=== PATIENT | male | born 1955 ===

== ENCOUNTER 2024-05-01 05:30 | Day surgery (SDC) | payer OTHER ==
[2024-04-18 08:03] LABS: PH,URINE 6.5 (5.0-8.0); URINE APPEARANCE Clear; URINE BILIRRUBIN Negative (NEGATIVE); URINE BLOOD Negative; URINE COLOR Yellow; URINE GLUCOSE Negative (NEGATIVE); URINE LEUKOCYTE Trace; URINE NITRATE Negative; URINE PROTEIN Negative (NEGATIVE)
[2024-04-18 08:04] LABS: URINE BACTERIA 8.8 uL (0.0-1933); URINE RBC 3.3 uL (0.0-20.8); URINE WBC 9.5 uL (0.0-23.2)
[2024-04-18 08:06] LABS: HEMATOCRIT 40.9 % (39.0-48.0); HEMOGLOBIN 14.1 g/dL (13-16.00); MEAN CELL VOLUME 97.5 fL (80.0-100.00); MEAN CORPUSCULAR HEMOGLOBIN 33.5 pg (27.00-32.0); MEAN CORPUSCULAR HGB CONC 34.4 g/dl (32.0-36.0); PLATELET COUNT 184 K/uL (150-450); RED CELL DISTRIBUTION WIDTH 14.5 % (11.5-14.5)
[2024-04-18 08:13] LABS: URINE EPITHELIAL CELLS 0.4 uL (0.0-38.8)
[2024-04-18 08:34] LABS: INR 1.03; PARTIAL THROMBOPLASTIN TIME 25.9 SECONDS (22.0-34.0); PROTHROMBIN TIME 10.8 SECONDS (9.0-11.5)
[2024-04-18 09:07] LABS: ALBUMIN 3.8 gm/dL (3.4-5.0); BILIRUBIN TOTAL 2.05 mg/dL (0.3-1.2); CREATININE SERUM 1.11 mg/dL (0.70-1.30); GFR 65.49; GLOBULINA 3.3 G/DL (2.4-3.5); POTASSIUM 4.23 mEq/L (3.5-5.1); TOTAL PROTEIN 7.1 gm/dL (6.4-8.2)
[~2024-05-01 05:30] MED LIST: KAPSPARGO SPRIN25 MG PO; PAXIL20 MG
[2024-05-01] MEDS ORDERED: CEFAZOLIN SODIUM 1,000 MG VIAL ONE (06:44)
[2024-05-01] MEDS ORDERED: BUPIVACAINE HCL/MPF 0.5% 30ML VIAL ONE (06:58)
[2024-05-01] MEDS ORDERED: LIDOCAINE HCL 1%/EPINEPHRINE 20ML VIAL IJ ONE ×2 (06:58→08:00)
[2024-05-01] MEDS ORDERED: BUPIVACAINE HCL/PF 0.25% 30ML VIAL InF ONE (08:00)
[2024-05-01] MEDS ORDERED: CEFAZOLIN SODIUM 1,000 MG VIAL IV ONE (08:00)
== END 2024-05-01 10:35 | disposition home or self-care (01) ==
LOC: CIR.AMB 05:30
PROVIDERS: ATTEND Surgery
DX: N62 Hypertrophy of breast (principal); Z91.013 Allergy to seafood; I10 Essential (primary) hypertension; F41.9 Anxiety disorder, unspecified; G43.909 Migraine, unspecified, not intractable, without status migrainosus; K29.70 Gastritis, unspecified, without bleeding; H52.209 Unspecified astigmatism, unspecified eye